=== PATIENT | male | born 1980 | race Caucasian/White ===

== ENCOUNTER 2021-11-19 15:52 | Emergency (ER) | payer OTHER ==
[2021-11-19] MEDS ORDERED: LEVETIRACETAM 500 MG/5 ML VIAL IV ONE (16:11)
[2021-11-19] MEDS ORDERED: NA CHLORIDE 0.9% 1,000 ML ONE (16:11)
[2021-11-19] MEDS ORDERED: NA CHLORIDE 0.9% 100 ML IV ONE (16:11)
[2021-11-19 16:18] LABS: Urine Blood Trace-intact (Negative); Urine Glucose Negative (Negative); Urine Protein Negative (Negative); Urine Specific Gravity 1.015 (1.005-1.030)
[2021-11-19 16:30] LABS: Hematocrit 45.5 % (39.6-49.0); Lymphocytes % 30.8 % (15.3-44.8); MPV 8.8 fL (7.6-11.3); RBC Red Blood Cell Count 5.03 M/uL (4.33-5.43)
[2021-11-19 16:36] LABS: Potassium 3.9 mmol/L (3.5-5.1)
--- NOTE | 2021-11-19 16:39 | RAD REPORT ---
EXAM DESCRIPTION: CT - Head Brain Wo Cont - 11/19/2021 4:30 pm CLINICAL HISTORY: Headache/seizure COMPARISON: None. TECHNIQUE: Computed axial tomography of the head was obtained. IV contrast was not requested. All CT scans are performed using dose optimization technique as appropriate and may include automated exposure control or mA/KV adjustment according to patient size. FINDINGS: An intracranial bleed is not seen . The ventricles are normal in caliber. No extra-axial fluid collection is noted. Fluid within the maxillary and ethmoid sinuses IMPRESSION: No acute intracranial abnormality is seen. If patient's symptoms persist MRI of the bra in would be recommended. Fluid within the maxillary and ethmoid sinuses may indicate an acute sinusitis
[2021-11-19 16:50] LABS: Urine RBC NONE SEEN /HPF (NONE SEEN)
[2021-11-19 16:51] LABS: Urine Bacteria NONE SEEN /HPF (NONE SEEN)
--- NOTE | 2021-11-19 17:31 | RAD REPORT ---
EXAM DESCRIPTION: US - Scrotum Testicles - 11/19/2021 5:11 pm CLINICAL HISTORY: Testicular pain COMPARISON: None FINDINGS: Right testicle measures 4.5 x 2.1 x 2.9 centimeters. Echotexture is homogeneous. Normal bl ood flow Left testicle measures 4.1 x 2.6 x 2.8 centimeters. Echotexture is homogeneous. Normal blood flow The epididymides are normal in size and echotexture. Normal blood flow is seen. Left spermatocele IMPRESSION: 1 centimeter left spermatocele
[2021-11-19 17:34] LABS: SARS-COV-2 RT PCR NEGATIVE (NEGATIVE)
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
[2021-11-19 19:55] VITALS: BP 136/97; O2SAT 98
--- NOTE | 2021-11-21 07:46 | EKG ---
Test Date: 2021-11-19 Test Time: 16:17:15 Hydrator: LAINE MEASUREMENT RESULTS: Intervals: Rate: 88 ND: 166 QRSD: 112 QT: 364 QTc: 440 Mchenry: P: 34 ND: 166 QRS: -8 T: 42 INTERPRETIVE STATEMENTS: Normal sinus rhythm Incomplete right bundle branch block Minimal voltage criteria for LVH, may be normal variant Borderline ECG No previous ECG available for comparison Electronically Signed On 11-21-21 07:41:48 CDT by Idris Duran
== END 2021-11-19 18:15 | disposition home or self-care (01) ==
LOC: ER 15:52
DX: G40.509 Epileptic seizures related to external causes, not intractable, without status epilepticus (principal); Z20.822 Contact with and (suspected) exposure to COVID-19; Z21 Asymptomatic human immunodeficiency virus [HIV] infection status; Z88.0 Allergy status to penicillin; Z88.5 Allergy status to narcotic agent
CPT/HCPCS: 96365; 93005; 87088; 85025; 87086; 80048; 36415; 0240U; 70450; 76870; 99284; 96366; 81003; 81015; J1953; J7030